=== PATIENT | male | born 1980 | race Caucasian/White ===

== ENCOUNTER 2019-07-13 14:25 | Emergency (ER) | payer SELFPAY ==
[2019-07-13] MEDS ORDERED: ASPIRIN 81 MG CHEW TAB PO ONE (14:29)
--- NOTE | 2019-07-13 14:29 | ED Physician Documentation ---
General Adult - HISTORIAN Historian: patient, other (law enforcement) - HPI Stated Complaint: chest pain, [id number] eval. Chief Complaint: General Adult Onset: hours Timing: still present Severity: moderate Further Comments: yes (Pt is a 38 yo aa male brought to ER by law enforcement. Pt c/o chest pain after being served a warrant by police. Pt has no PMHx heart dz. Pt states he has had HTN, but does not take meds. No n/v, sob, diaphoresis. No radiatioin of pain. Pt appears anxious on presentation.) - ROS CONST: no problems EYES/ENT: none CVS/RESP: chest pain GI/: none MS/SKIN/LYMPH: none - PAST HX Past History: hypertension Other History: none Allergies/Adverse Reactions: Allergies Allergy/AdvReac Type Severity Reaction Status Date / Time No Known Allergies Allergy Unverified 07/13/19 15:01 Home Medications: Ambulatory Orders Medication Instructions Recorded NK 07/13/19 - SOCIAL HX Smoking History: cigarettes Drug Use: other (denies drug use) - FAMILY HX Family History: No - REVIEWED ASSESSMENTS Nursing Assessment Reviewed: Yes Vitals Reviewed: Yes Progress - Progress Progress: drug screen not available, except as send-out. NS 1 L IVF improved - EKG/XRAY/CT EKG: rhythm (sinus tachycardia, ON=968, LVH.) General Adult Physical Exam - PHYSICAL EXAM GENERAL APPEARANCE: mild distress (anxious) EENT: pharynx normal NECK: normal inspection, supple RESPIRATORY: no resp distress, chest non-tender, breath sounds normal CVS: tachycardia ABDOMEN: soft, no organomegaly, normal bowel sounds BACK: normal inspection, no CVA tenderness SKIN: warm/dry, normal color EXTREMITIES: non-tender, normal range of motion, no evidence of injury, no edema NEURO: oriented X3, motor nml, sensation nml, other (anxious) Discharge Clincal Impression: Non-cardiac chest pain Referrals: Primary Doctor,No [Primary Care Provider] - Condition: Stable Disposition: HOME, SELF-CARE Decision to Admit: NO Decision Time: 16:16
[2019-07-13] MEDS ORDERED: 0.9 % SODIUM CHLORIDE 1,000 ML IV ONE (14:35)
[2019-07-13 14:50] LABS: BASOPHILS % 0.6 % (0.0-1.5); NEUTROPHILS # 5.4 # k/uL (1.4-7.7)
--- NOTE | 2019-07-13 14:59 | Diagnostic Imaging Report ---
PATIENT MR#: [id number] PATIENT PATIENT NAME: KATELYN BARRIOS DATE OF : 1980 REFERRING PHYSICIAN: Froylan Walton EXAM DATE: 07/13/2019 ACCESSION NUMBER: [id number] EXAM DESCRIPTION: CHEST 1VIEW Chest 1 view Indication: PT STATES COUGHING , CHEST PAIN, SOB Findings: Frontal view of the chest shows the lungs to be well expanded. There is no consolidation, pleural ef fusion, or pneumothorax. The heart size is normal. Impression: No acute pulmonary disease Read by: Dr. Jef Fowler Transcribed by: Transcribed Date: Electronically signed by: Dr. Jef Fowler Date signed: 07/13/2019 2:58:50 PM
[2019-07-13 15:04] LABS: eGFR (Non-African) > 60
[2019-07-13 17:22] VITALS: BP 126/75
== END 2019-07-13 16:50 | disposition home or self-care (01) ==
LOC: ED 14:25
DX: R07.9 Chest pain, unspecified (principal)
CPT/HCPCS: 71045; 80053; 82550; 82553; 84484; 85025; 96360; 99284; J7030; 93005; S1016